=== PATIENT | female | born 1990 | race Caucasian/White ===

== ENCOUNTER 2017-05-20 15:58 | Emergency (ER) | payer OTHER ==
[~2017-05-20] VITALS: Ht 152.4 cm; Wt 38.7 kg
[2017-05-20] MEDS ORDERED: IV NORMAL SALINE 1,000ML 1,000 ML IV SCH (16:19)
--- NOTE | 2017-05-20 16:28 | PHYS DOC ---
Adult General Chief Complaint Chief Complaint: ABDOMINAL PAIN HPI HPI Patient is a 26 year old female who presents with complaint of lower abdominal and back pain. Patient states that she first noted symptoms last night and her back but states that this resolved on its own spontaneously. Patient states however earlier today shortly prior to arrival she started having sharp lower abdominal pain that travels throughout her lower abdomen and into her back. Patient states that she has had history of hemorrhagic cyst requiring laparoscopic intervention in the past but states that her symptoms were unilateral on the left side. Patient states however this seems to travel to both sides which is unusual compared to previous. The patient has no previous history of and states that her last menstrual period was last month and she has been regular. Patient rates her pain currently as 9 out of 10 on my evaluation. Patient denies any associated fever or nausea with symptoms. Patient also denies any abnormal vaginal bleeding or abnormal discharge. Review of Systems Review of Systems Constitutional: Denies fever or chills [] Eyes: Denies change in visual acuity, redness, or eye pain [] HENT: Denies nasal congestion or sore throat [] Respiratory: Denies cough or shortness of breath [] Cardiovascular: Denies chest pain or edema[] GI: Abdominal pain, nausea, denies vomiting, bloody stools or diarrhea [] : Denies dysuria or hematuria [] Musculoskeletal: Back pain[] Integument: Denies rash or skin lesions [] Neurologic: Denies headache, focal weakness or sensory changes [] All other systems were reviewed and found to be within normal limits, except as documented in this note. Allergies Allergies Allergies Coded Allergies Type Severity Reaction Last Updated Verified No Known Drug Allergies 05/20/17 No Physical Exam Physical Exam Constitutional: Alert, afebrile, appears in moderate to severe discomfort. [] HENT: Normocephalic, atraumatic, bilateral external ears normal, oropharynx moist, no oral exudates, nose normal. [] Eyes: PERRLA, EOMI, conjunctiva normal, no discharge. [] Neck: Normal range of motion, no tenderness, supple, no stridor. [] Cardiovascular:Heart rate regular rhythm, no murmur [] Lungs & Thorax: Bilateral breath sounds clear to auscultation [] Abdomen: Bowel sounds normal, soft, suprapubic and bilateral lower quadrant tenderness to palpation with guarding, no masses, no pulsatile masses. All: Normal external exam, blood in vaginal canal, cervical os closed, no cervical motion tenderness, right adnexal tenderness to palpation, no midline or left adnexal tenderness on bimanual exam[] Skin: Warm, dry, no erythema, no rash. [] Back: No tenderness, no CVA tenderness. [] Extremities: No tenderness, no cyanosis, no clubbing, ROM intact, no edema. [] Neurologic: Alert and oriented X 3, normal motor function, normal sensory function, no focal deficits noted. [] Current Patient Data Vital Signs Vital Signs Date Time Temp Pulse Resp B/P (MAP) Pulse Ox O2 Delivery O2 Flow Rate FiO2 05/20/17 17:08 99 18 125/72 (89) 100 Room Air 05/20/17 16:00 97.6 Lab Results Laboratory Tests Test 05/20/17 15:58 05/20/17 16:40 05/20/17 16:45 Bedside Urine HCG, Qualitative hcg positive Maternal Serum HCG Beta Subunit 5929 mIU/mL White Blood Count 21.3 x10^3/uL Red Blood Count 4.77 x10^6/uL Hemoglobin 15.1 g/dL Hematocrit 45.5 % Mean Corpuscular Volume 95 fL Mean Corpuscular Hemoglobin 32 pg Mean Corpuscular Hemoglobin Concent 33 g/dL Red Cell Distribution Width 13.7 % Platelet Count 229 x10^3/uL Neutrophils (%) (Auto) 87 % Lymphocytes (%) (Auto) 6 % Monocytes (%) (Auto) 5 % Eosinophils (%) (Auto) 1 % Basophils (%) (Auto) 1 % Neutrophils # (Auto) 18.5 x10^3uL Lymphocytes # (Auto) 1.3 x10^3/uL Monocytes # (Auto) 1.1 x10^3/uL Eosinophils # (Auto) 0.2 x10^3/uL Basophils # (Auto) 0.1 x10^3/uL Platelet Estimate Pending Prothrombin Time 9.9 SEC Prothromb Time International Ratio 1.0 Activated Partial Thromboplast Time 23 SEC Urine Collection Type Unknown Urine Color Yellow Urine Clarity Cloudy Urine pH 5.5 Urine Specific [place] 1.025 Urine Protein Neg Urine Glucose (UA) Neg mg/dL Urine Ketones (Stick) Neg mg/dL Urine Blood Small Urine Nitrite Neg Urine Bilirubin Neg Urine Urobilinogen Dipstick 0.2 mg/dL Urine Leukocyte Esterase Trace Urine RBC 3-5 /HPF Urine WBC 5-10 /HPF Urine Squamous Epithelial Cells Many /LPF Urine Bacteria Few /HPF Urine Mucus Marked /LPF Sodium Level 138 mmol/L Potassium Level 3.5 mmol/L Chloride Level 102 mmol/L Carbon Dioxide Level 24 mmol/L Anion Gap 12 Blood Urea Nitrogen 11 mg/dL Creatinine 0.6 mg/dL Estimated GFR (Cockcroft-Gault) 119.9 BUN/Creatinine Ratio 18 Glucose Level 86 mg/dL Calcium Level 9.0 mg/dL Magnesium Level 1.9 mg/dL Total Bilirubin 0.3 mg/dL Aspartate Amino Transf (AST/SGOT) 13 U/L Alanine Aminotransferase (ALT/SGPT) 25 U/L Alkaline Phosphatase 22 U/L Total Protein 7.5 g/dL Albumin 4.1 g/dL Albumin/Globulin Ratio 1.2 Current Medications Medications (Trade) Dose Ordered Sig/Rebecca Route PRN Reason Start Time Stop Time Status Last Admin Dose Admin Ondansetron HCl (Zofran) 4 mg 1X ONCE IV 05/20/17 16:45 05/20/17 16:46 DC 05/20/17 16:42 Fentanyl Citrate (Fentanyl 2ml Vial) 50 mcg PRN Q15MIN PRN IV PAIN GREATER THAN 3/10 05/20/17 16:30 05/21/17 16:29 05/20/17 16:44 Sodium Chloride 1,000 ml @ 1,000 mls/hr Q1H IV 05/20/17 16:19 05/20/17 17:18 DC 05/20/17 16:41 EKG EKG Not performed[] Radiology/Procedures Radiology/Procedures [] Course & Med Decision Making Course & Med Decision Making Pertinent Labs and Imaging studies reviewed. (See chart for details) The patient was given IV fluids, fentanyl, and Zofran. Symptoms have improved at this time. At time of sign out, results of wet prep and ultrasound are pending. Patient's vital signs are stable at this time. Care of patient signed out to Dr. Mchugh at 1805. Are MHayden. attending note Dr. Juan Ramon Mchugh. Care assumed by me from Dr. Malave at 1805. Patient stable on reevaluation. Ultrasound returns with results of intrauterine without visualized heart activity, reported as possibly secondary to early gestational age. Mom with elevated white blood cell count likely secondary to alone however given that patient's complaint was pelvic discomfort, I reevaluated her specifically to clinically rule out the possibility of evolving coincident appendicitis. Patient has a nontender abdomen and pelvis upon my evaluation and specifically Doreen's point was benign. She has no guarding or rebound. Patient is able to stand and walk with no difficulty. She is able to strike her heels against the ground with no discomfort whatsoever. Patient has no signs of peritoneal irritation. She is aware of the unlikely possibility that she could have early evolving appendicitis. Patient would like to go home and follow up with her [employer] doctor as an outpatient, She is aware to be vigilant for signs of worsening abdominal pain especially with movement or fevers, she will return immediately for new severe worsening symptoms. Dragon Disclaimer Dragon Disclaimer This electronic medical record was generated, in whole or in part, using a voice recognition dictation system. Departure Departure: Impression: Primary Impression: Intrauterine Additional Impressions: Pelvic pain during Leukocytosis Disposition: HOME, SELF-CARE Condition: GOOD Referrals: PCP,UNKNOWN (PCP) Patient Instructions: Abdominal Pain During , Leukocytosis Additional Instructions: As we have discussed, you have an intrauterine . Based on the ultrasound results the gestational age of your is 5 weeks and 4 days today. Your quantitative hCG is 5929. Ultrasound was unable to see heart activity today however this may be because it is too early. Rest and drink plenty of fluids. Observe pelvic rest as well. Take vitamins one a day during her . It's critically important that you stop smoking to optimize the health of your as well as your own long-term health. Do not drink any alcohol. Follow-up with your [employer] doctor for repeat hCG level as well as repeat imaging to follow the development of your . Your white blood cell count is elevated today at 21. An elevated white blood cell count is common in however sometimes this can be associated with other things such as infection. You have no evidence of abdominal or other infection today. It is appropriate for you to follow-up with your [employer] doctor or your primary care physician for a recheck of this white blood cell count and to arrange further workup and treatment as needed. As discussed, return immediately to emergency department for worsening abdominal pain especially worsening pain associated with movement. Return to an emergency department or see your [employer] doctor immediately if you have any vaginal bleeding, new severe or worsening symptoms. Scripts Ondansetron (ZOFRAN ODT) 4 Mg Tab.rapdis 1 TAB SL Q4HRS, #24 TAB Prov: JUAN RAMON MCHUGH MD 05/20/17 Problem Qualifiers JOELLE MALAVE MD May 20, 2017 16:28 JUAN RAMON MCHUGH MD May 20, 2017 20:18
[2017-05-20] MEDS ORDERED: ONDANSETRON PF 4 MG/2 ML VIAL. IV ONE (16:45)
[2017-05-20 17:06] LABS: BASO # 0.1 x10^3/uL (0.0-0.2); BASO % 1 % (0-3); EOS # 0.2 x10^3/uL (0.0-0.7); EOS % 1 % (0-3); HEMATOCRIT 45.5 % (36.0-47.0); HEMOGLOBIN 15.1 g/dL (12.0-15.5); LYMPH # 1.3 x10^3/uL (1.0-4.8); LYMPH % 6 % (24-48); MEAN CORPUSCULAR HEMOGLOBIN 32 pg (25-35); MEAN CORPUSCULAR HGB CONC 33 g/dL (31-37); MEAN CORPUSCULAR VOLUME 95 fL (79-100); MONO # 1.1 x10^3/uL (0.0-1.1); MONO % 5 % (0-9); NEUT # 18.5 x10^3uL (1.8-7.7); NEUT % 87 % (31-73); PLATELET COUNT 229 x10^3/uL (140-400); RED BLOOD COUNT 4.77 x10^6/uL (3.50-5.40); RED CELL DISTRIBUTION WIDTH 13.7 % (11.5-14.5); WHITE BLOOD COUNT 21.3 x10^3/uL (4.0-11.0)
[2017-05-20 17:20] LABS: ALBUMIN 4.1 g/dL (3.4-5.0); ALBUMIN/GLOBULIN RATIO 1.2 (1.0-1.7); CREATININE 0.6 mg/dL (0.6-1.0); GFR 119.9; MAGNESIUM 1.9 mg/dL (1.8-2.4); POTASSIUM 3.5 mmol/L (3.5-5.1); TOTAL BILIRUBIN 0.3 mg/dL (0.2-1.0); TOTAL PROTEIN 7.5 g/dL (6.4-8.2)
[2017-05-20 17:35] LABS: BACTERIA,URINE FEW /HPF (0-FEW); BILIRUBIN,URINE NEG (NEG); CLARITY,URINE CLOUDY; COLOR,URINE YELLOW; GLUCOSE,URINE NEG (NEG); NITRITE,URINE NEG (NEG); SQUAMOUS EPITHELIAL CELL,UR MANY /LPF; UROBILINOGEN,URINE 0.2 mg/dL (0.2 mg/dL)
--- NOTE | 2017-05-20 18:56 | RAD ---
Ultrasound OB less than 14 weeks, ultrasound transvaginal 05/20/2017 Clinical indication: Severe pelvic pain. Beta hCG 5929 COMPARISON: None. FINDINGS: Transabdominal and endovaginal images were performed. The uterus measures 6.9 x 4.5 x 3.3 cm. There is an intrauterine gestational sac measuring up to 0.9 cm with an eccentric yolk sac a crown-rump flank measuring 0.2 cm. Mean sac diameter is 0.8 cm consistent with estimated gestational age of 5 weeks and 4 days. There is no demonstrable heart rate. Right ovary measures 3.1 x 2.5 x 3.1 cm with a thick-walled peripherally vascular cystic structure measuring up to 1.4 cm, likely a corpus luteum. Normal color Doppler imaging of the right ovary. The left ovary measures 3.0 x 1.9 x 1.9 cm containing a cyst with internal debris and no evidence of internal blood flow measuring up to 1.5 cm. No significant pelvic free fluid. IMPRESSION: 1. Single intrauterine with estimated gestational age of 5 weeks 4 days. heart rate is not identified, however likely due to early dates. Close clinical follow-up is recommended. 2. Right ovarian corpus luteum. 3. Left ovarian cyst with internal debris measuring up to 1.5 cm, likely hemorrhagic cyst. Electronically signed by: Wilver Zarate MD (05/20/2017 6:53 PM) [facility]
[2017-05-20 20:17] LABS: % BANDS 3 % (0-9); % LYMPHS 7 % (24-48); % MONOS 3 % (0-10); % SEGS 85 % (35-66)
[2017-05-20] MEDS ORDERED: ONDA4TAB10 SL (20:18)
[2017-05-20 20:30] VITALS: BP 110/64
[2017-05-20 20:30] LABS: PLT ESTIMATE ADEQUATE (ADEQUATE)
[2017-05-20 20:34] LABS: % ATYL 2 % (0-0)
[2017-05-23 05:37] LABS: CHLAMYDIA PROBE Negative (Negative)
== END 2017-05-20 20:26 | disposition home or self-care (01) ==
LOC: ER 15:58
DX: O26.891 Other specified pregnancy related conditions, first trimester (principal); R10.2 Pelvic and perineal pain; D72.829 Elevated white blood cell count, unspecified; O99.111 Other diseases of the blood and blood-forming organs and certain disorders involving the immune mechanism complicating pregnancy, first trimester; O34.81 Maternal care for other abnormalities of pelvic organs, first trimester; N83.202 Unspecified ovarian cyst, left side; Z3A.01 Less than 8 weeks gestation of pregnancy
CPT/HCPCS: 36415; 76801; 76817; 80053; 81001; 81025; 83735; 84702; 85007; 85025; 85610; 85730; 87086; 87491; 87591; 96361; 96374; 96375; 96376; 99285; J2405; J3010; Q0111; J7030